=== PATIENT | female | born 1950 | race Asian ===

== ENCOUNTER 2022-10-30 14:54 | Outpatient (CLI) | payer MEDICAID, SELFPAY ==
[2022-10-30 22:18] LABS: Albumin* 4.4 g/dL (3.3-5.0); Chloride* 106 mmol/L (96-114); Sodium* 140 mmol/L (135-149)
[2022-10-30 22:21] LABS: Alkaline Phosphatase* 59 U/L (40-150); Aspartate Amino Transferase* 22 U/L (12-35); Bilirubin Total* 0.9 mg/dL (0.1-1.5); Blood Urea Nitrogen* 20 mg/dL (7-30); Carbon Dioxide* 26 mmol/L (20-32); Cholesterol* 190 mg/dL (90-199); Creatinine* 0.7 mg/dL (0.5-1.5); Estimated Glomerular Filt Rate 94 ml/min; Glucose* 89 mg/dL (60-115); Total Protein* 6.9 g/dL (6.0-8.3)
[2022-10-30 22:22] LABS: Alanine Aminotransferase* 18 U/L (4-35); Calcium* 9.2 mg/dL (8.4-10.6); HDL Cholesterol* 48 mg/dL (>=50); LDL Cholesterol Calculated 116 mg/dL (<100); Triglycerides* 129 mg/dL (40-149)
[2022-10-30 22:53] LABS: TSH With Reflex to FT4* 0.274 uIU/mL (0.270-4.200)
[2022-10-30 23:10] LABS: Hepatitis C Virus Antibody* Negative (Negative)
== END 2022-10-30 14:55 | disposition home or self-care (01) ==
PROVIDERS: PCP Family Medicine; Visit Provider Family Medicine
DX: Z00.00 Encounter for general adult medical examination without abnormal findings (principal); E03.9 Hypothyroidism, unspecified; Z11.59 Encounter for screening for other viral diseases; Z13.6 Encounter for screening for cardiovascular disorders
CPT/HCPCS: 80053; 80061; 84443; 86803

== ENCOUNTER 2022-12-11 11:52 | Outpatient (CLI) | payer MEDICAID, SELFPAY ==
[2022-12-11 23:10] LABS: TSH With Reflex to FT4* 0.389 uIU/mL (0.270-4.200)
== END 2022-12-11 11:53 | disposition home or self-care (01) ==
LOC: FRMREF 11:53
PROVIDERS: PCP Family Medicine; Visit Provider Family Medicine
DX: E03.9 Hypothyroidism, unspecified (principal)
CPT/HCPCS: 84443

== ENCOUNTER 2023-11-06 10:03 | Outpatient (CLI) | payer MEDICAID, SELFPAY | END 2023-11-06 10:04 | disposition home or self-care (01) | PROVIDERS: PCP Family Medicine; Visit Provider Family Medicine | DX: E03.9 Hypothyroidism, unspecified (principal); Z79.899 Other long term (current) drug therapy; Z13.220 Encounter for screening for lipoid disorders; Z13.228 Encounter for screening for other metabolic disorders; Z13.89 Encounter for screening for other disorder | CPT/HCPCS: 80053; 80061; 84439; 84443; 86803 ==

== ENCOUNTER 2023-11-08 14:29 | Outpatient (CLI) | payer MEDICAID, SELFPAY ==
--- NOTE | 2023-11-08 14:40 | CRLHL7_ITS ---
For Patients: As a result of the Century Cures Act, medical imaging exams and procedure reports are released immediately into your electronic medical record. You may view this report before your referring provider. If you have questions, please contact your health care provider. BILATERAL SCREENING MAMMOGRAM WITH COMPUTER-AIDED DETECTION TECHNIQUE: CC and MLO views were obtained. These mammographic images have been obtained using full-field digital technique. These mammographic images were interpreted with the benefit of computer-aided detection. COMPARISON FILM: Baseline. FINDINGS: There are scattered areas of fibroglandular density IMPRESSION: There is no radiographic evidence for malignancy. ASSESSMENT: BI-RADS Category 1: Negative RECOMMENDATION: Routine screening mammogram in 1 year. A lay language report of this examination will be provided to the patient. Axel Upton M.D. Diagnostic Radiologist [email or web address] DEBBI/Dictated by: Axel Upton MD @ 11/13/2023 1:13:00 PM (Electronically Signed)
== END 2023-11-08 14:30 | disposition home or self-care (01) ==
LOC: MAMMO 14:31
PROVIDERS: PCP Family Medicine; Visit Provider Family Medicine
DX: Z12.31 Encounter for screening mammogram for malignant neoplasm of breast (principal)
CPT/HCPCS: 77067

== ENCOUNTER 2023-11-22 13:03 | Outpatient (CLI) | payer MEDICAID, SELFPAY ==
--- NOTE | 2023-11-22 13:00 | CRLHL7_ITS ---
For Patients: As a result of the Century Cures Act, medical imaging exams and procedure reports are released immediately into your electronic medical record. You may view this report before your referring provider. If you have questions, please contact your health care provider. DXA BONE MINERAL DENSITY STUDY Reason for exam: Encounter for screening for osteoporosis. Screening. Current height (in): 63. Weight (lb): 130. Menopause age: 52. Ethnicity: White. 1. Have you had a previous hip or vertebral fracture? No. 2. Have you had any fractures during your adult life which did not result from significant trauma (e.g., auto accident)? No. 3. Did either of your parents have a hip fracture? No. 4. Do you smoke? No. 5. Have you ever taken Glucocorticoids? No. 6. Do you have rheumatoid arthritis? No. 7. Do you have secondary osteoporosis? No. 8. Do you drink 3 or more alcoholic drinks per day? No. 9. Are you being treated for osteoporosis? No. 10. Have you ever taken any of the following medications: Actonel, Evista, Fosamax, Miacalcin, Reclast, Boniva, Forteo, HRT (i.e., estrogen/hormone therapy), Protelos, Prolia, Vitamin D, Calcium, other ??? please specify. ANSWER: No. 11. Do you have any of the following medical conditions: Anorexia or bulimia, asthma or emphysema, end stage renal disease, hyperparathyroidism, any seizure disorders, cancer, inflammatory bowel diseases, hysterectomy, other ??? please specify. ANSWER: No. 12. What was your maximum height (inches)? 63. 13. Do you perform weight bearing exercise regularly? No. 14. Do you regularly consume dairy products? No. 15. Do you drink caffeinated beverages? Yes. If female: 16. At what age did your period start? 14. 17. Are you premenopausal? No. 18. How many full-term pregnancies have you had? 1. 19. Have you ever missed your period for more than 6 months in a row (not including or menopause)? No. TECHNIQUE: Bone mineral density study was performed using the [employer]. FINDINGS: The results of the study expressed as bone mineral density (BMD) are as follows: Lumbar spine L1 to L4: BMD: 1.010 g/cm2. T-score: -0.3. Z-score: 1.8 Neck Left: BMD: 0.691 g/cm2. T-score: -1.4. Z-score: 0.4 Right: BMD: 0.682 g/cm2. T-score: -1.5. Z-score: 0.3 Total Left: BMD: 0.896 g/cm2. T-score: -0.4. Z-score: 1.2 Right: BMD: 0.911 g/cm2. T-score: -0.3. Z-score: 1.3 IMPRESSION: Osteopenia. FRAX 10-year Fracture Risk Major Osteoporotic Fracture: <0.1% Hip Fracture: <0.1% Reported Risk Factors: [place] () Neck BMD= 0.682, BMI= 23.0 Axel Upton M.D. Diagnostic Radiologist [email or web address]/[email or web address]/Dictated by: Axel Upton MD @ 11/22/2023 1:40:00 PM (Electronically Signed)
== END 2023-11-22 13:04 | disposition home or self-care (01) ==
PROVIDERS: PCP Family Medicine; Visit Provider Family Medicine
DX: Z13.820 Encounter for screening for osteoporosis (principal); M85.89 Other specified disorders of bone density and structure, multiple sites
CPT/HCPCS: 77080

== ENCOUNTER 2024-11-07 12:47 | Outpatient (CLI) | payer MEDICAID, SELFPAY | END 2024-11-07 12:48 | disposition home or self-care (01) | PROVIDERS: PCP Family Medicine; Visit Provider Family Medicine | DX: E03.9 Hypothyroidism, unspecified (principal); Z13.228 Encounter for screening for other metabolic disorders; Z13.220 Encounter for screening for lipoid disorders | CPT/HCPCS: 80053; 80061; 84439; 84443 ==

== ENCOUNTER 2025-04-30 14:30 | Outpatient (CLI) | payer MEDICAID, SELFPAY | END 2025-04-30 14:31 | disposition home or self-care (01) | LOC: NFLDREF 05-01 13:15 | PROVIDERS: PCP Family Medicine; Referring Provider Family Medicine; Visit Provider Family Medicine | DX: E03.9 Hypothyroidism, unspecified (principal) | CPT/HCPCS: 84443 ==

== ENCOUNTER 2025-11-09 15:53 | Outpatient (CLI) | payer MEDICAID, SELFPAY | END 2025-11-09 15:54 | disposition home or self-care (01) | PROVIDERS: PCP Family Medicine; Visit Provider Family Medicine | DX: Z00.00 Encounter for general adult medical examination without abnormal findings (principal); E03.9 Hypothyroidism, unspecified; Z91.89 Other specified personal risk factors, not elsewhere classified | CPT/HCPCS: 80053; 80061; 83090; 84439; 84443 ==